=== PATIENT | female | born 1990 | race Caucasian/White ===

== ENCOUNTER 2017-11-12 10:04 | Emergency (ER) | payer OTHER ==
[~2017-11-12] VITALS: Ht 162.6 cm; Wt 67.0 kg
[2017-11-12 10:39] VITALS: BP 125/75
[2017-11-12] MEDS ORDERED: FAMOTIDINE 20 MG TABLET ONE (10:42)
[2017-11-12] MEDS ORDERED: DIPHENHYDRAMINE 25 MG CAPSULE ONE (10:52)
[2017-11-12] MEDS ORDERED: FAMOTIDINE 20 MG TABLET PO ONE (11:00)
[2017-11-12] MEDS ORDERED: DIPHENHYDRAMINE 25 MG CAPSULE PO ONE (11:00)
== END 2017-11-12 11:37 | disposition home or self-care (01) ==
LOC: ED 11:23
DX: T78.3XXA Angioneurotic edema, initial encounter (principal); L73.9 Follicular disorder, unspecified; Y92.89 Other specified places as the place of occurrence of the external cause
CPT/HCPCS: 99284; J7512; Q0163

== ENCOUNTER 2019-04-18 15:13 | Emergency (ER) | payer OTHER ==
[~2019-04-18] VITALS: Ht 167.6 cm; Wt 72.2 kg
[2019-04-18 16:27] LABS: BASOPHILS # (AUTO) 0.01 x10^3/uL (0-0.1); BASOPHILS % (AUTO) 0 % (0-1); EOSINOPHILS # (AUTO) 0.02 x10^3/uL (0-0.4); EOSINOPHILS % (AUTO) 0 % (1-7); LYMPHOCYTES # (AUTO) 0.45 x10^3/uL (1-3.4); LYMPHOCYTES % (AUTO) 5 % (22-44); MD NO; MEAN CORPUSCULAR HEMOGLOBIN 30.5 pg (27.0-34.8); MEAN CORPUSCULAR HGB CONC 33.3 g/dL (32.4-35.8); MEAN CORPUSCULAR VOLUME 91.8 fL (80-100); MEAN PLATELET VOLUME 7.7 fL (7.4-10.4); MONOCYTES # (AUTO) 0.33 x10^3/uL (0.2-0.8); MONOCYTES % (AUTO) 4 % (2-9); NEUTROPHILS # (AUTO) 8.62 x10^3/uL (1.8-6.8); NEUTROPHILS % (AUTO) 91 % (42-75); PLATELET COUNT 398 x10^3/uL (130-400); RED BLOOD COUNT 5.02 x10^6/uL (3.82-5.3); RED CELL DISTRIBUTION WIDTH 13.7 % (9.6-15.2)
[2019-04-18 16:30] LABS: ALANINE AMINOTRANSFERASE 31 U/L (12-78); ALBUMIN 3.7 g/dL (3.4-5.0); ANION GAP 8 mmol/L (5-15); CALCIUM 8.3 mg/dL (8.5-10.1); CHLORIDE 111 mmol/L (98-107)
[2019-04-18 16:32] LABS: ALKALINE PHOSPHATASE 54 U/L (45-117); BILIRUBIN,TOTAL 0.9 mg/dL (0.2-1.0); CREATININE 0.77 mg/dL (0.55-1.02)
[2019-04-18 17:06] LABS: CULTURE INDICATED? YES; HCG UR SG 1.036 (1.003-1.030); MICROSCOPIC INDICATED
[2019-04-18] MEDS ORDERED: ONDANSETRON ODT 4 MG ONE (19:07)
--- NOTE | 2019-04-18 19:09 | NUR ---
PT HAS HAD CO ABDOMINAL PAIN, Z/V/D. MD AT BEDSIDE. MEDICATED PER ORDERS.
[2019-04-18 19:12] VITALS: BP 125/89
[2019-04-18] MEDS ORDERED: ONDANSETRON ODT 4 MG PO ONE (19:30)
--- NOTE | 2019-04-18 19:32 | NUR ---
Patient/Caregiver given discharge instructions and they have confirmed that they understand the instructions. Patient ambulatory with steady gait.
== END 2019-04-18 19:50 | disposition home or self-care (01) ==
LOC: ED 19:00
DX: R11.2 Nausea with vomiting, unspecified (principal); R19.7 Diarrhea, unspecified; R10.9 Unspecified abdominal pain; R42 Dizziness and giddiness
CPT/HCPCS: 36415; 76700; 80053; 81001; 81025; 83690; 85025; 87086; 99284; Q0162